=== PATIENT | female | born 1955 | race Caucasian/White ===

== ENCOUNTER 2017-12-06 07:20 | Day surgery (SDC) | payer MEDICAID ==
[~2017-12-06 07:20] MED LIST: BALANCED SALT IRRIG SOLN COMB2 500ML OP ONE
[2017-12-06] MEDS ORDERED: TROPICAMIDE 1% OPHTH DROPS 15ML RIGHTEYE SCH (08:35)
[2017-12-06] MEDS ORDERED: CYCLOPENTOLATE HCL 1% OPHTH DROPS 2ML RIGHTEYE SCH (08:35)
[2017-12-06] MEDS ORDERED: PHENYLEPHRINE HCL 10% OPHTH DROPS 5ML RIGHTEYE SCH (08:35)
[2017-12-06] MEDS ORDERED: HYALURONATE SODIUM 14 MG/ML 0.85ML SYRINGE IO ONE (09:42)
[2017-12-06] MEDS ORDERED: METF-816 PO (09:52)
[2017-12-06] MEDS ORDERED: LOSA100T14 PO (09:52)
[2017-12-06] MEDS ORDERED: INSU100I13 SQ (09:52)
[2017-12-06] MEDS ORDERED: ASPI-1159 PO (09:52)
[2017-12-06] MEDS ORDERED: BRIN8DRO OP (09:52)
[2017-12-06] MEDS ORDERED: INSU100I24 SQ (09:52)
[2017-12-06] MEDS ORDERED: ATOR10TA69 PO (09:52)
[2017-12-06] MEDS ORDERED: LATA2.5D2 OP (09:52)
[2017-12-06] MEDS ORDERED: MIDAZOLAM HCL 2 MG/2 ML VIAL ONE (10:56)
[2017-12-06] MEDS ORDERED: PROPOFOL 200MG/20ML VIAL IV ONE (11:00)
[2017-12-06] MEDS ORDERED: BALANCED SALT IRRIG SOLN 15ML ONE (11:04)
[2017-12-06] MEDS ORDERED: CYCLOPENTOLATE HCL 1% OPHTH DROPS 2ML ONE (11:04)
[2017-12-06] MEDS ORDERED: TROPICAMIDE 1% OPHTH DROPS 15ML ONE (11:04)
[2017-12-06] MEDS ORDERED: CIPROFLOXACIN 0.3% OPHTH SOLN 2.5ML ONE (11:04)
[2017-12-06] MEDS ORDERED: PHENYLEPHRINE HCL 10% OPHTH DROPS 5ML ONE (11:04)
[2017-12-06] MEDS ORDERED: LIDOCAINE HCL/PF 2% 20 MG/ML 10ML VIAL ONE (11:04)
[2017-12-06] MEDS ORDERED: NEO/POLYMYX B SULF/DEXAMETH OPHTH OINT 3.5GM ONE (11:04)
[2017-12-06] MEDS ORDERED: PREDNISOLONE ACETATE 1% OPHTH DROPS 1ML ONE (11:04)
[2017-12-06] MEDS ORDERED: HYDROMORPHONE HCL/PF 2MG/ML CPJ IV PRN (11:30)
[2017-12-06] MEDS ORDERED: ONDANSETRON HCL 4MG/2ML VIAL IV PRN (11:30)
== END 2017-12-06 12:30 | disposition home or self-care (01) ==
LOC: OR 07:20
PROVIDERS: ATTEND Ophthalmology
DX: H25.011 Cortical age-related cataract, right eye (principal); H21.541 Posterior synechiae (iris), right eye; E78.00 Pure hypercholesterolemia, unspecified; E11.9 Type 2 diabetes mellitus without complications; I10 Essential (primary) hypertension; E66.01 Morbid (severe) obesity due to excess calories; Z79.82 Long term (current) use of aspirin; Z79.4 Long term (current) use of insulin; Z79.899 Other long term (current) drug therapy
CPT/HCPCS: 65875; 66984; 82962; J2250; J3490; J7030; J7120; V2632; J2704

== ENCOUNTER 2018-01-24 12:12 | Day surgery (SDC) | payer MEDICAID ==
[~2018-01-24] VITALS: Ht 160 cm; Wt 93.4 kg
[~2018-01-24 12:12] MED LIST changes: +ASPI-1159 PO; +ATOR10TA69 PO; +BALANCED SALT IRRIG SOLN 15ML ONE; +BALANCED SALT IRRIG SOLN COMB2 500ML OP NR; -BALANCED SALT IRRIG SOLN COMB2 500ML OP ONE; +BRIN8DRO OP; +INSU100I13 SQ; +INSU100I24 SQ; +LATA2.5D2 OP; +LIDOCAINE HCL/PF 2% 20 MG/ML 10ML VIAL ONE; +LOSA100T14 PO; +METF-816 PO; +OFLOXACIN 0.3% OPHTH SOLN 5ML ONE; +PHENYLEPHRINE HCL 2.5% OPHTH DROPS 2ML ONE; +PREDNISOLONE ACETATE 1% OPHTH DROPS 1ML ONE; +TETRACAINE 0.5% OPHTH DROPS 4ML ONE
[2018-01-24] MEDS ORDERED: PHENYLEPHRINE HCL 10% OPHTH DROPS 5ML LEFTEYE ONE (13:10)
[2018-01-24] MEDS ORDERED: CYCLOPENTOLATE HCL 1% OPHTH DROPS 2ML LEFTEYE ONE (13:10)
[2018-01-24] MEDS ORDERED: TROPICAMIDE 1% OPHTH DROPS 15ML LEFTEYE ONE (13:10)
[2018-01-24 13:24] LABS: EOSINOPHILS % 3.3 % (0.0-5.0); HEMATOCRIT. 37.5 % (36.0-48.0); HEMOGLOBIN. 12.4 g/dL (12.0-16.0); LYMPHOCYTES % 21.7 % (20.0-50.0); MEAN CORPUSCULAR HEMOGLOBIN 28.1 pg (28.0-32.0); MEAN CORPUSCULAR VOLUME 84.7 fL (81.0-99.0); MEAN PLATELET VOLUME 7.7 fl (7.4-10.4); MONOCYTES % 7.3 % (2.0-8.0); NEUTROPHILS % 66.7 % (40.0-76.0); PLATELET 331 x1000/uL (130-400); RED BLOOD CELL COUNT 4.42 mill/uL (4.2-5.4); RED CELL DISTRIBUTION WIDTH 13.3 % (11.6-14.6)
[2018-01-24] MEDS ORDERED: SODIUM CHLORIDE 0.9% 1,000 ML IV SCH (13:30)
[2018-01-24 13:31] LABS: CHLORIDE 104 mEq/L (98-107)
[2018-01-24] MEDS ORDERED: MIDAZOLAM HCL 2 MG/2 ML VIAL ONE (14:40)
[2018-01-24] MEDS ORDERED: SODIUM CHLORIDE 0.9% 1,000 ML IV ONE (14:42)
[2018-01-24] MEDS ORDERED: HYDROMORPHONE HCL/PF 2MG/ML CPJ IV PRN (14:45)
[2018-01-24] MEDS ORDERED: ONDANSETRON HCL 4MG/2ML INJ IV PRN (14:45)
[2018-01-24] MEDS ORDERED: IBUPROFEN 600MG TABLET PO SCH (14:45)
[2018-01-24] MEDS ORDERED: HYALURONATE SODIUM 14 MG/ML 0.85ML SYRINGE IO ONE (14:51)
== END 2018-01-24 17:00 | disposition home or self-care (01) ==
LOC: OR 12:12
PROVIDERS: ATTEND Ophthalmology
DX: H25.012 Cortical age-related cataract, left eye (principal); I10 Essential (primary) hypertension; E66.01 Morbid (severe) obesity due to excess calories; E11.9 Type 2 diabetes mellitus without complications; E78.00 Pure hypercholesterolemia, unspecified; Z79.4 Long term (current) use of insulin; Z79.82 Long term (current) use of aspirin; Z79.899 Other long term (current) drug therapy; Z88.0 Allergy status to penicillin
CPT/HCPCS: 36415; 66984; 80048; 82962; 85025; 93005; J2250; J3490; J7030; V2632

== ENCOUNTER 2018-10-17 07:24 | Day surgery (SDC) | payer MEDICAID ==
[~2018-10-17] VITALS: Ht 160 cm; Wt 93.4 kg
[~2018-10-17 07:24] MED LIST changes: -BALANCED SALT IRRIG SOLN 15ML ONE; -BALANCED SALT IRRIG SOLN COMB2 500ML OP NR; +BRIN8DRO BOTHEYE; -BRIN8DRO OP; -LIDOCAINE HCL/PF 2% 20 MG/ML 10ML VIAL ONE; -OFLOXACIN 0.3% OPHTH SOLN 5ML ONE; -PHENYLEPHRINE HCL 2.5% OPHTH DROPS 2ML ONE; -PREDNISOLONE ACETATE 1% OPHTH DROPS 1ML ONE; -TETRACAINE 0.5% OPHTH DROPS 4ML ONE
[2018-10-17] MEDS ORDERED: SODIUM CHLORIDE 0.9% 1,000 ML IV SCH (08:45)
[2018-10-17] MEDS ORDERED: MIDAZOLAM HCL 2 MG/2 ML VIAL ONE (11:29)
[2018-10-17] MEDS ORDERED: CEFAZOLIN SODIUM 1000MG/VIAL ONE (11:31)
[2018-10-17] MEDS ORDERED: HYDROMORPHONE HCL/PF 2MG/ML CPJ IV PRN (12:30)
[2018-10-17] MEDS ORDERED: MEPERIDINE HCL/PF 25MG/ML CPJ IV PRN (12:30)
[2018-10-17] MEDS ORDERED: LABETALOL 5MG/ML SYR 20 MG/4 ML SYRINGE IV PRN (12:30)
[2018-10-17] MEDS ORDERED: ONDANSETRON HCL 4MG/2ML INJ IV PRN (12:30)
[2018-10-17] MEDS ORDERED: CIPROFLOXACIN 0.3% OPHTH SOLN 2.5ML ONE (16:12)
[2018-10-17] MEDS ORDERED: BUPIVACAINE HCL/PF 0.75% (7.5MG/ML) 10ML ONE (16:12)
[2018-10-17] MEDS ORDERED: LIDOCAINE HCL 2%/EPINEPHRINE 1:100,000 20 ML VIAL INFIL ONE (16:12)
[2018-10-17] MEDS ORDERED: PREDNISOLONE ACETATE 1% OPHTH DROPS 1ML ONE (16:12)
[2018-10-17] MEDS ORDERED: TETRACAINE 0.5% OPHTH DROPS 4ML ONE (16:12)
[2018-10-17] MEDS ORDERED: BALANCED SALT IRRIG SOLN 15ML ONE (16:12)
== END 2018-10-17 13:40 | disposition home or self-care (01) ==
LOC: OR 07:24
PROVIDERS: ATTEND Ophthalmology
DX: H02.403 Unspecified ptosis of bilateral eyelids (principal); E11.29 Type 2 diabetes mellitus with other diabetic kidney complication; E11.36 Type 2 diabetes mellitus with diabetic cataract; E11.39 Type 2 diabetes mellitus with other diabetic ophthalmic complication; E78.5 Hyperlipidemia, unspecified; I10 Essential (primary) hypertension; H26.9 Unspecified cataract; H40.9 Unspecified glaucoma; E66.01 Morbid (severe) obesity due to excess calories; Z79.899 Other long term (current) drug therapy; Z79.4 Long term (current) use of insulin; Z90.49 Acquired absence of other specified parts of digestive tract
CPT/HCPCS: 15823; 82962; J0690; J2250; J3490